=== PATIENT | female | born 1950 | race Caucasian/White ===

== ENCOUNTER 2017-09-12 17:46 | Emergency (ER) | payer MEDICARE ==
[~2017-09-12] VITALS: Ht 167.6 cm; Wt 77.1 kg
[~2017-09-12 17:46] MED LIST: SYNTHROID
--- OUTSIDE RECORDS SUMMARY | 2017-09-12 17:49 | XMS REPORT | Clinical Summary ---
Author Author [facility] Organization [facility] Address Unknown Phone Unavailable Care Team Providers Care Process Manufacturing Engineer Name Role Phone Asked, Given PCP Unavailable Allergies Active Allergy Reactions Severity Noted Date Comments No Known Drug Allergies 12/02/2015 Current Medications Prescription Sig. Disp. Refills Start End Date Status Date levothyroxine (SYNTHROID) Take 1 tablet(s) every Active 100 MCG tablet day by oral route. apixaban (ELIQUIS) 5 mg Take 2.5 mg by mouth 2 Active tablet (two) times a day. spironolactone Take 50 mg by mouth Active (ALDACTONE) 50 MG tablet daily. Active Problems Problem Noted Date Atrial fibrillation 12/02/2015 Malignant neoplasm of breast 12/02/2015 Last Assessment & Plan: RTC 1 year w mamm Mass of breast 09/18/2012 Family History Medical History Relation Name Comments Breast cancer Mother Relation Name Status Comments Mother Social History Tobacco Use Types Packs/Day Years Used Date Never Smoker Alcohol Use Drinks/Week oz/Week Comments No Sex Assigned at Date Recorded Not on file Last Filed Vital Signs Not on file Plan of Treatment Health Maintenance Due Date Last Done Comments COLONOSCOPY 1998 ZOSTER VACCINE 2008 PNEUMOCOCCAL 2013 POLYSACCHARIDE VACCINE AGE 65 AND OVER PNEUMOCOCCAL-13 2013 INFLUENZA VACCINE 02/21/2017 MAMMOGRAM 12/14/2017 12/15/2015, 12/15/2015, 12/17/2013, Additional history exists Results Not on fileafter 09/11/2016 Insurance Payer Benefit Subscriber ID Type Phone Address Plan / Group MEDICARE MEDICARE xxxxxxxxxx Medicare [place], [place] PART A AND B [employer] M[employer] OF xxxxxxxx [employer] [place] Work: [facility] [address] amily YENNY SIMON [id number] Home:
[2017-09-12 18:31] VITALS: BP 140/72
[2017-09-12] MEDS ORDERED: IBUPROFEN 400 MG TAB PO ONE (18:45)
== END 2017-09-12 18:25 | disposition home or self-care (01) ==
LOC: FSED 17:46
DX: S90.31XA Contusion of right foot, initial encounter (principal); W22.8XXA Striking against or struck by other objects, initial encounter; Y93.H2 Activity, gardening and landscaping; Y92.017 Garden or yard in single-family (private) house as the place of occurrence of the external cause; I10 Essential (primary) hypertension; E03.9 Hypothyroidism, unspecified; Z85.3 Personal history of malignant neoplasm of breast; I48.91 Unspecified atrial fibrillation
CPT/HCPCS: 99282

== ENCOUNTER 2018-10-17 06:41 | Emergency (ER) | payer MEDICARE, OTHER ==
[~2018-10-17] VITALS: Ht 167.6 cm; Wt 75.3 kg
--- OUTSIDE RECORDS SUMMARY | 2018-10-17 06:43 | XMS REPORT | Clinical Summary ---
Author Author [facility] Organization [facility] Address Unknown Phone Unavailable Care Team Providers Care Offset Second Press Operator Name Role Phone Asked, None Given PCP Unavailable Allergies Comments Active Allergy Reactions Severity Noted Date No Known Drug Allergies 12/02/2015 Medications End Date Status Medication Sig Dispensed Refills Start Date Active spironolactone Take 50 mg by 0 (ALDACTONE) 50 MG tablet mouth daily. Active aspirin (ECOTRIN) 81 MG Take 81 mg by 0 enteric coated tablet mouth daily. Active levothyroxine (SYNTHROID, Take 100 mcg 0 LEVOXYL) 100 mcg tablet by mouth daily. Active metoprolol succinate XL Take 50 mg by 0 (TOPROL-XL) 50 mg 24 hr mouth daily. tablet Active atorvastatin (LIPITOR) 20 Take 20 mg by 0 MG tablet mouth daily. Default OP ins 08/28/2018 Discontinued levothyroxine (SYNTHROID) Take 1 0 100 MCG tablet tablet(s) every day by oral route. 08/28/2018 Discontinued apixaban (ELIQUIS) 5 mg Take 2.5 mg 0 tablet by mouth 2 (two) times a day. Active Problems Problem Noted Date Atrial fibrillation 12/02/2015 Malignant neoplasm of breast 12/02/2015 Last Assessment & Plan: RTC 1 year w mamm Mass of breast 09/18/2012 Encounters Care Team Description Date Type Specialty Lucille Christianson MD Malignant neoplasm of female breast, unspecified estrogen receptor status, unspecified laterality, unspecified site of breast (HCC) (Primary Dx) 10/12/2018 Transcribe Access Orders Lucille Christianson MD 10/09/2018 Telephone Oncology Zak Richards Jr., MD SUBCUTANEOUS CARDIAC RHYTHM MONITOR REMOVAL [[id number] (CPT)] 08/29/2018 Surgery Procedural Cardiology Zak Richards Jr., MD PAF (paroxysmal atrial fibrillation) ([facility]) 08/29/2018 Hospital Procedural Cardiology Encounter after 10/16/2017 Family History Medical History Relation Name Comments Breast cancer Mother Relation Name Status Comments Mother Social History Date Tobacco Use Types Packs/Day Years Used Never Smoker Smokeless Tobacco: Never Used Alcohol Use Drinks/Week oz/Week Comments Yes occasional Sex Assigned at Date Recorded Not on file Industry Job Start Date Occupation Not on file Not on file Not on file Travel End Travel History Travel Start No recent travel history available. Last Filed Vital Signs Time Taken Vital Sign Reading 08/29/2018 8:45 AM ENVELOPE C[facility]TER Blood Pressure 126/60 08/29/2018 8:45 AM ENVELOPE CUTTER Pulse 48 08/29/2018 8:00 AM ENVELOPE CUTTER Temperature 36.4 C (97.5 F) 08/29/2018 8:45 AM ENVELOPE CUTTER Respiratory Rate 25 08/29/2018 8:45 AM ENVELOPE CUTTER Oxygen Saturation 96% - Inhaled Oxygen - Concentration 08/29/2018 5:34 AM ENVELOPE CUTTER Weight 74.7 kg (164 lb 9.6 oz) 08/29/2018 5:34 AM ENVELOPE CUTTER Height 167.6 cm (5' 6") 08/29/2018 5:34 AM ENVELOPE CUTTER Body Mass Index 26.57 Plan of Treatment Care Team Description Date Type Specialty Lucille Christianson MD [address] [place] [address] 11/27/2018 Appointment Radiology Lucille Christianson MD [address] [place] [address] 11/27/2018 Office Visit Oncology Health Maintenance Due Date Last Done Comments COLON CANCER SCREENING 1998 SHINGLES VACCINES (#1) 1998 65+ PNEUMOCOCCAL VACCINE 2013 (1 of 2 - PCV13) PNEUMOCOCCAL 2013 POLYSACCHARIDE VACCINE AGE 65 AND OVER BREAST CANCER SCREENING 12/14/2017 12/15/2015, 12/15/2015, 12/17/2013, Additional history exists INFLUENZA VACCINE 02/21/2018 Implants Device Identifier Shelf Expiration Date Model / Serial / Lot Implanted Type Area Manufactur er 08/06/2019 LINQSYS / / [id number] System Reveal Linq W/Monitors - Cardiac N/A: N/A [employer] [id number] Pacemakers CARDIAC Implanted: Qty: 1 on 08/29/2018 by and RHYTHM Zak Richards Jr., MD Related DISEASE Products MGMT Procedures Comments Procedure Name Priority Date/Time Associated Diagnosis EP SUBCUTANEOUS CARDAIC Routine 08/29/2018 PAF (paroxysmal atrial RHYTHM MONITOR INSERT W 7:46 AM ENVELOPE CUTTER fibrillation) ([facility]) PROG EP SUBCUTANEOUS CARDIAC Routine 08/29/2018 PAF (paroxysmal atrial RHYTHM MONITOR REMOVAL 7:46 AM ENVELOPE CUTTER fibrillation) ([facility]) HC COMPLETE BLD COUNT STAT 08/29/2018 W/AUTO DIFF 6:03 AM ENVELOPE CUTTER POC PANEL Routine 08/29/2018 6:00 AM ENVELOPE CUTTER ESTIMATED GFR Routine 08/29/2018 6:00 AM ENVELOPE CUTTER after 10/16/2017 Results * Cv electrophysiology procedure (08/29/2018 7:46 AM ENVELOPE CUTTER) Narrative Performed At [facility] Zak Richards Jr., MD Physician Electrophysiology Brief Op Note Signed Date of Service:08/29/2018 7:15 AM Procedure: SUBCUTANEOUS CARDIAC RHYTHM MONITOR REMOVAL Case Time: 08/29/2018 7:15 AM Surgeon: Zak Richards Jr., MD Signed []Hide copied text []Hover for details LINQ Explant and REImplantOperative Note Meagan Sullivan,[id number] 67 y.o. female 08/29/2018; [facility] WT RECREATION PROGRAM SPECIALIST 04 Procedure(s): SUBCUTANEOUS CARDIAC RHYTHM MONITOR REMOVAL SUBCUTNEOUS CARDIAC RHYTHM MONITOR INSERTION Tolerated procedure well Condition: stable Complications:None; patient tolerated the procedure well. Findings: The old ILR SN RLA [id number] was explanted The new device was put in place after flushing with antibiotic flush The incision was closed with a single suture and skin glue Procedure Details Pre-op Diagnosis: PAF (paroxysmal atrial fibrillation) ([facility]) [I48.0] Post-Op Diagnosis Codes: * PAF (paroxysmal atrial fibrillation) (HCC) [I48.0] Surgeon(s) and Role: * Zak Richards Jr., MD - Primary Anesthesia: Anesthesia type not filed in the log. Blood Products Administered:none Estimated Blood Loss: * No values recorded between 08/29/20187:15 AM and 08/29/20187:46 AM * Sheath/IV: Specimens: * No specimens in log * Grafts/Implants: Implant Name Type Inv. Item Serial No. Internal Sales Lot No. LRB No. Used Action SYSTEM REVEAL LINQ W/MONITORS - [id number] Cardiac Pacemakers and Related Products SYSTEM REVEAL LINQ W/MONITORS [employer] CARDIAC RHYTHM DISEASE MGMT [id number] N/A 1 Implanted Zak Richards Jr., MD Date: 08/29/2018Time: 7:46 AM Performing Organization Address [facility] Phone Number [facility] [address] [place] [address] * CBC with platelet and differential (08/29/2018 6:03 AM ENVELOPE CUTTER) WBC 8.52 4.50 - 11.00 k/uL [facility] RBC 5.15 4.20 - 5.50 m/uL [facility] HGB 15.7 12.0 - 16.0 g/dL [facility] HCT 48.2 (H) 37.0 - 47.0 % [facility] MCV 93.6 82.0 - 100.0 fL [facility] MCH 30.5 27.0 - 34.0 pg [facility] MCHC 32.6 31.0 - 37.0 g/dL [facility] RDW - SD 41.8 37.0 - 55.0 fL [facility] MPV 10.8 8.8 - 13.2 fL [facility] Platelet count 181 150 - 400 k/uL [facility] Nucleated RBC 0.00 /100 WBC [facility] Neutrophils 63.9 39.0 - 69.0 % [facility] Lymphocytes 25.5 25.0 - 45.0 % [facility] Monocytes 5.9 0.0 - 10.0 % [facility] Eosinophils 3.8 0.0 - 5.0 % [facility] Basophils 0.5 0.0 - 1.0 % [facility] Immature granulocytes 0.4Comment: "Immature 0.0 - 1.0 % [facility] granulocytes" (promyelocytes, HOSPITAL myelocytes, metamyelocytes) Specimen Blood Performing Organization Address City/[facility] [place] [address] PATHOLOGY AND GENOMIC MEDICINE [address] * Estimated GFR (08/29/2018 6:00 AM ENVELOPE CUTTER) Estimated GFR 88 mL/min/1.73 m2 [facility] Comment: HOSPITAL CatergoryUnitsInte rpretation G1 >=90 Normal or high G2 60-89Mildly decreased V3b75-90 Mildly to moderately decreased C5e69-28 Moderately to severely decreased G4 15-29Severely decreased G5 <15Kidney failure The eGFR was calculated using the Chronic Kidney Disease Epidemiology Collaboration (CKD-EPI) equation. Interpretation is based on recommendations of the National Kidney Foundation-Kidney Disease Outcomes Quality Initiative (NKF-KDOQI) published in 2014. Specimen Blood Performing Organization Address City/[facility]/[place] [address] PATHOLOGY AND GENOMIC MEDICINE [address] * POC panel (08/29/2018 6:00 AM ENVELOPE CUTTER) POC sodium 139 135 - 148 mmol/L [facility] POC potassium 4.4 3.5 - 5.0 mmol/L [facility] POC chloride 101 99 - 109 mmol/L [facility] POC CO2 27 24 - 31 mmol/L [facility] POC glucose 151 (H) 65 - 99 mg/dL [facility] POC BUN 14 8 - 24 mg/dL [facility] POC creatinine 0.7 0.5 - 0.9 mg/dl [facility] POC hematocrit 49 (H) 37 - 47 % [facility] POC anion gap 16 8 - 20 mmol/L [facility] Comment: HOSPITAL Meter ID: [id number] Desktop Engineer: Justice Dee Performing Organization Address City/State/[place] [address] PATHOLOGY AND GENOMIC MEDICINE [address] after 10/16/2017 Insurance Payer Benefit Subscriber ID Type Phone Address Plan / Group COMMERCIAL MISC MISC xxxxxx-xx Commercial COMMERCIAL MEDICARE MEDICARE xxxxxxxxxxx Medicare [place], [place] PART A AND B Advance Directives Patient has advance care planning documents on file. For more information, osmany howell contact: Lemuel Hernandez [address] [place] [address]
--- NOTE | 2018-10-17 07:35 | NUR ---
DR. GUERRA IN WITH PT AT THIS TIME.
--- NOTE | 2018-10-17 07:50 | Diagnostic Imaging Report ---
Exam: Right ankle, 3 views History: Trauma Comparison: None. Findings: No acute, displaced fracture or dislocation. Ankle mortise is maintained. Tibial plafond and talar dome are intact. Mild soft tissue swelling about the ankle. Impression: Soft tissue swelling about the right ankle without underlying acute osseous abnormality. Signed by: Dr. Aurelio Hebert M.D. on 10/17/2018 7:47 AM
[2018-10-17 08:12] VITALS: BP 121/66
== END 2018-10-17 08:09 | disposition home or self-care (01) ==
LOC: ER 06:41
DX: S93.431A Sprain of tibiofibular ligament of right ankle, initial encounter (principal); S93.421A Sprain of deltoid ligament of right ankle, initial encounter; W18.49XA Other slipping, tripping and stumbling without falling, initial encounter; Y93.01 Activity, walking, marching and hiking; Y92.410 Unspecified street and highway as the place of occurrence of the external cause
CPT/HCPCS: 99283

== ENCOUNTER 2019-06-13 14:12 | Observation (INO) | payer MEDICARE, OTHER ==
[~2019-06-13] VITALS: Ht 167.6 cm; Wt 74.4 kg
--- OUTSIDE RECORDS SUMMARY | 2019-06-13 14:14 | XMS REPORT ---
Author [facility] Address Unknown Phone Unavailable Care Team Providers Care Tobacco Packing Machine Operator Name Role Phone Taco GUERRA Unavailable Unavailable Problems This patient has no known problems. Allergies, Adverse Reactions, Alerts This patient has no known allergies or adverse reactions. Medications This patient has no known medications. Results Test Description Test Time Test Comments Text Results Atomic Results Result Comments ANKLE 3 + VIEWS RIGHT 2018-10-17 07:39:00 [place] [address] Patient Name: ANUPAMA SINGH MR #: [id number] : 1950 Age/Sex: 67/F Req #: [id number] Adm Physician: Ordered by: TIMO GARZA MD Report #: [id number] Location: ER Room/Bed: Procedure: [id number] DX/ANKLE 3 + VIEWS RIGHT Exam Date: Exam Time: REPORT STATUS: Signed Exam: Right ankle, 3 views History: Trauma Comparison: None. Findings: No acute, displaced fracture or dislocation. Ankle mortise is maintained. Tibial plafond and talar dome are intact. Mild soft tissue swelling about the ankle. Impression: Soft tissue swelling about the right ankle without underlying acute osseous abnormality. Signed by: Dr. Justina Meyer M.D. on 10/17/2018 7:47 AM Dictated By: JUSTINA MEYER MD 6 Transcribed By: ÓSCAR on 10/17/18746 COPY TO: TIMO GARZA MD
[2019-06-13] MEDS ORDERED: ASPIRIN 325 MG TAB PO ONE (14:15)
[2019-06-13] MEDS ORDERED: ENOXAPARIN INJ 80 MG/0.8 ML SYR SC ONE (14:45)
[2019-06-13] MEDS ORDERED: ENOXAPARIN SODIUM INJ 100 MG/ML SYR SC ONE (14:45)
[2019-06-13] MEDS ORDERED: METOPROLOL TARTRATE INJ 1 MG/ML VIAL IV ONE ×2 (14:45→16:30)
--- NOTE | 2019-06-13 14:53 | Diagnostic Imaging Report ---
EXAMINATION: CHEST SINGLE (PORTABLE) INDICATION: Chest pain COMPARISON: None FINDINGS: LINES/TUBES:EKG leads overlie the chest.. Loop recorder device on the left. LUNGS:The lungs are well-inflated. No focal consolidation or pulmonary edema. PLEURA:No pleural effusion or pneumothorax. MEDIASTINUM:The cardiomediastinal silhouette appears normal in size and shape. Atherosclerotic calcifications of the thoracic aorta. BONES/SOFT TISSUES:No acute osseous injury. ABDOMEN:No free air under the diaphragm. IMPRESSION: No focal pneumonia or pulmonary edema. Signed by: Tereso Rueda MD on 06/13/2019 2:50 PM
[2019-06-13 15:03] LABS: EOSINOPHILS % 0.2 % (0.0-6.0); HEMATOCRIT 45.1 % (34.2-44.1); HEMOGLOBIN 15.5 g/dL (12.0-16.0); LYMPHOCYTES % 3.6 % (18.0-39.1); MEAN CORPUSCULAR HGB CONC 34.4 g/dL (31-35); MEAN CORPUSCULAR VOLUME 90.2 fL (81-99); MONOCYTES % 0.7 % (4.4-11.3); NEUTROPHILS % 5.5 % (38.7-80.0); PLATELET COUNT 201 x10e3/uL (140-360); RED CELL DISTRIBUTION WIDTH 11.9 % (11.7-14.4)
[2019-06-13 15:07] LABS: INR 0.89; PARTIAL THROMBOPLASTIN TIME 31.5 seconds (23.8-35.5); PROTHROMBIN TIME 12.5 seconds (11.9-14.5)
[2019-06-13 15:19] LABS: ALANINE AMINOTRANSFERASE 35 IU/L (0-55); ALBUMIN 4.1 g/dL (3.5-5.0); ALBUMIN/GLOBULIN RATIO 1.1 (0.8-2.0); ALKALINE PHOSPHATASE 104 IU/L (40-150); ANION GAP 15.7 mmol/L (8-16); BLOOD UREA NITROGEN 19 mg/dL (7-26); BUN/CREATININE RATIO 23 (6-25); CALCIUM 10.6 mg/dL (8.4-10.2); CARBON DIOXIDE 24 mmol/L (22-29); CHLORIDE 101 mmol/L (98-107); CREATINE KINASE 87 IU/L (29-168); CREATININE, SERUM 0.84 mg/dL (0.57-1.11); EST GLOMERULAR FILTRATION RATE > 60 ML/MIN (60-); GLUCOSE 142 mg/dL (74-118); MAGNESIUM 1.9 MG/DL (1.3-2.1); POTASSIUM 3.7 mmol/L (3.5-5.1); SODIUM 137 mmol/L (136-145)
[2019-06-13] MEDS ORDERED: METOPROLOL SUCC50 MG PO (15:28)
[2019-06-13] MEDS ORDERED: SYNTHROID100 MCG PO (15:28)
[2019-06-13] MEDS ORDERED: ATORVASTATIN CA20 MG PO (15:28)
[2019-06-13] MEDS ORDERED: SPIRONOLACTONE50 MG PO (15:28)
[2019-06-13] MEDS ORDERED: METOPROLOL TARTRATE 25 MG TAB PO ONE (16:30)
[2019-06-13] MEDS ORDERED: DILTIAZEM HCL 5 MG/ML 5 ML VIAL IV STA (17:34)
[2019-06-13] MEDS ORDERED: DIGOXIN INJ 0.25 MG/ML 2 ML AMP IV ONE (17:45)
[2019-06-13] MEDS ORDERED: NITROGLYCERIN 0.4 MG SUBL SL PRN (17:45)
[2019-06-13] MEDS ORDERED: MORPHINE SULFATE 2 MG/ML SYR 1ML IV PRN (17:45)
[2019-06-13] MEDS ORDERED: ONDANSETRON HCL INJ 2MG/ML 2ML 2 MG/ML VIAL IV PRN (17:45)
[2019-06-13] MEDS: METOPROLOL TARTRATE 25 MG TAB PO SCH (18:08)
[2019-06-13] MEDS: FAMOTIDINE 20 MG/2 ML VIAL IV SCH (18:08)
[2019-06-13 21:45] VITALS: BP 104/50
--- NOTE | 2019-06-13 21:45 | NUR ---
patient received to room 212 via stretcher from the emergency room. vss. patient denies chest pain at this time. admit assessment/history obtained. call carey placed within reach. patient instructed to call for assistance when needed.
--- NOTE | 2019-06-13 23:00 | NUR ---
second set of cardiac markers drawn at this time and taken to the lab.
[2019-06-14] VITALS (9 sets, daily range): BP systolic 101–141; BP diastolic 51–67
[2019-06-14 05:54] LABS: BASOPHILS % 0.2 % (0.0-1.0); EOSINOPHILS # (AUTO) 0.1 (0.0-0.4); EOSINOPHILS % 1.1 % (0.0-6.0); HEMATOCRIT 41.2 % (34.2-44.1); HEMOGLOBIN 14.1 g/dL (12.0-16.0); LYMPHOCYTES # (AUTO) 2.3 (1.0-3.2); LYMPHOCYTES % 28.5 % (18.0-39.1); MEAN CORPUSCULAR HEMOGLOBIN 30.9 pg (28-32); MEAN CORPUSCULAR HGB CONC 34.2 g/dL (31-35); MEAN CORPUSCULAR VOLUME 90.2 fL (81-99); MONOCYTES # (AUTO) 0.6 (0.2-0.8); MONOCYTES % 7.2 % (4.4-11.3); NEUTROPHILS # (AUTO) 5.2 (2.1-6.9); NEUTROPHILS % 62.6 % (38.7-80.0); PLATELET COUNT 176 x10e3/uL (140-360); RED BLOOD COUNT 4.57 x10e6/uL (3.6-5.1); RED CELL DISTRIBUTION WIDTH 12.1 % (11.7-14.4)
[2019-06-14] MEDS: FAMOTIDINE 20 MG/2 ML VIAL IV SCH ×2 (06:00→17:40)
[2019-06-14] MEDS: METOPROLOL TARTRATE 25 MG TAB PO SCH ×3 (06:00→17:40)
[2019-06-14 06:20] LABS: ALANINE AMINOTRANSFERASE 28 IU/L (0-55); ALBUMIN 3.4 g/dL (3.5-5.0); ALBUMIN/GLOBULIN RATIO 1.1 (0.8-2.0); ALKALINE PHOSPHATASE 75 IU/L (40-150); ANION GAP 11.9 mmol/L (8-16); BLOOD UREA NITROGEN 18 mg/dL (7-26); BUN/CREATININE RATIO 23 (6-25); CALCIUM 9.8 mg/dL (8.4-10.2); CARBON DIOXIDE 27 mmol/L (22-29); CHLORIDE 103 mmol/L (98-107); CHOL/HDL RATIO 7.8 (3.0-3.6); CHOLESTEROL 196 MD/DL (0-199); EST GLOMERULAR FILTRATION RATE > 60 ML/MIN (60-); GLUCOSE 126 mg/dL (74-118); HDL CHOLESTEROL 25 MG/DL (40-60); LDL CHOLESTEROL 121 MG/DL (60-130); POTASSIUM 3.9 mmol/L (3.5-5.1); SODIUM 138 mmol/L (136-145); TRIGLYCERIDES 249 MG/DL (0-149)
[2019-06-14 06:48] LABS: CREATINE KINASE MB 2.6 ng/mL (0-5.0)
[2019-06-14] MEDS: APIXABAN 5 MG TABLET PO SCH ×3 (10:12→18:24)
--- NOTE | 2019-06-14 10:42 | NUR ---
Telemetry called and said patient has converted back to a fib with heart rate in 120's. Dr. Fitzgerald is here making rounds, orders received to give PO Metoprolol. Bp is 122/67 at this time. will continue to monitor.
--- NOTE | 2019-06-14 12:00 | NUR ---
Changed to observation status. Per nursing report, pt went back into a fib with HR 120s. Pt was given po metoprolol. Dr. Fitzgerald plans to dc this evening, if HR controlled and pt stable.
--- NOTE | 2019-06-14 16:10 | NUR ---
Patient continues to be sinus tachycardia in 120's-130's. Telemetry called and said patient converted to a flutter in 90's and intermittently back into ST. Dr. Fitzgerald was notified, new orders received. Patient cannot be discharged home at this time. Dr. Kamara was also notified. New orders received
--- NOTE | 2019-06-14 17:10 | Consultation ---
DATE OF CONSULTATION: 06/14/2019 Cardiology Consultation REASON FOR CONSULTATION: Atrial fibrillation. HISTORY: A 68-year-old lady, very active physically, who is known to have atrial fibrillation first diagnosed in 2013. At that time, the patient had workup including cardiac catheterization showed normal coronary. She had DC shock. She is maintained on medication. She had ablation in 2014. She was on Eliquis, Toprol, and Aldactone 50 mg a day. The patient subsequently had loop recorder. During that loop recorder, it was noted several times the patient got atrial fibrillation. She has stopped her Eliquis on her account. She is followed by Dr. Duran in the medical center. The patient came yesterday with severe palpitation prolonged with chest tightness, chest pressure. She was in atrial fibrillation with fast ventricular response. She was given medication and Lovenox and she converted to sinus bradycardia. She is doing well. She wants to go home. Her workup showed normal cardiac enzymes. Her TSH is at 0.5. BNP of 234. Her electrolytes were normal. The patient denied having any angina. She is very active. 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 There is no orthopnea, no paroxysmal nocturnal dyspnea. She has arrhythmia history as described above. REVIEW OF SYSTEMS: GENERAL: No fever. No chills. No weight loss. No weight gain. HEENT: No vision problem. No hearing problem. PULMONARY: No cough. No hemoptysis. CARDIAC: As per acute illness. GI: No hematemesis. No melena. No constipation. No diarrhea. : No hematuria. No dysuria. MUSCULOSKELETAL: No aches. No pain. NEUROLOGICAL: No localized deficits. No seizure activity. HEMATOLOGY: No easy bruising or bleeding. ENDOCRINE: The patient is with hypothyroidism. Her dose of Levoxyl is monitored by her physician. SKIN: There are no rashes. SOCIAL HISTORY: She is . She is nonsmoker. She rarely have a drink. She is retired from [employer]. HOME MEDICATIONS: Levoxyl 112 mcg a day, Toprol-XL 50 mg a day, Aldactone 50 mg a day, aspirin 81 mg a day, and vitamin D. ALLERGIES: NONE. PAST MEDICAL HISTORY: 1. Paroxysmal atrial fibrillation status post cardioversion in 2013 and ablation. 2. Loop recorder placement. 3. Left breast lumpectomy for cancer in 2009. 4. Tubal ligation. 5. Tonsillectomy. FAMILY HISTORY: Father of lung cancer at age 78. Mother of old age with congestive heart failure at age 85. Three brothers, she lost a brother due to AIDS and another brother due to metastatic lung cancer. One healthy sister. No children. PHYSICAL EXAMINATION: VITAL SIGNS: Height of 5 feet 6 inches, weight of 164 pounds, blood pressure 120/60, heart rate 50, respiratory rate of 18, afebrile. HEENT: Pupils are equal and reactive. NECK: No elevation of jugular venous pulsation. No bruit. CHEST: Clear to auscultation and percussion. HEART: PMI at 5th intercostal space. Normal first and second heart sounds. ABDOMEN: Soft with good bowel sounds. No organomegaly. No abdominal bruits. EXTREMITIES: No cyanosis. No clubbing. No edema. Good distal pulses. NEUROLOGIC: Awake, alert, oriented. No motor or sensory deficits. SKIN: No rashes. LABORATORY DATA: Sodium of 138, potassium 3.9, BUN of 18, creatinine of 0.8, glucose of 126. White blood cell count of 8.2, hemoglobin of 14.1, hematocrit 41%, and platelet count of 176,000. EKG from the ER showing atrial fibrillation with very fast ventricular response. Repeat EKG showing extreme sinus bradycardia with nonspecific ST changes. Chest x-ray showed no cardiomegaly, no pulmonary edema. TSH is normal at 0.5. Cardiac enzymes are normal. Triglycerides showed 249, cholesterol of 196, HDL of 25, and LDL of 121. IMPRESSION AND PLAN: 1. Atrial fibrillation, paroxysmal, status post ablation. The patient having recurrent atrial fibrillation. She is followed by Dr. Duran in the medical center. We will start Eliquis. We will continue beta mitchell. She will be seeing him on Monday. 2. Hypothyroidism. 3. Worry about coronary artery disease, mainly with her abnormal lipid profile with very low HDL of 25. However, the patient denied having any angina and she had workup including cardiac cath in 2013. She was advised to have further cardiac workup and at least stress test just to be on safe side. All this discussed and explained. The patient expressed her strong wishes to go home because Thanksgiving alliance party is tomorrow, where the family and every one will go to another place. She will be seeing Dr. Duran on Monday. She already have an appointment. MD GENESIS Lambert/LAURA /[id number]
--- NOTE | 2019-06-14 17:15 | History and Physical ---
CHIEF COMPLAINT: Heart palpitations. HISTORY OF PRESENT ILLNESS: A 68-year-old female, who has a history of atrial fibrillation in the past when she follows up with an EP physician, [facility] machine[facility] and [facility]. Reports to the emergency room with complaints of sudden onset of palpitations. The patient was found to be in atrial fibrillation with RVR with a heart rate in the 150s. The patient reports that she has had an ablation in the past, loop recorders . She reports she has had a cardioversions many times before and continues to take medications in relation to her underlying atrial fibrillation. Initially, she reports she was sleeping soundly. She noticed her heart was racing significantly, came into the [facility] the ER noticed her heart rate was still elevated. She also reports that she was very lightheaded and dizzy when this occurred. The patient seen and evaluated at bedside on the medical floor. She is currently doing well with no other complaints. The patient wishes heart rate was much controlled. Cardiology evaluated her. Cardiology recommends continue with same medications at home including or Eliquis. The patient refused to take Eliquis due to cost. During my evaluation, heart rate went up to 120s and her metoprolol was restarted this morning. REVIEW OF SYSTEMS: Pertinent positives: Atypical chest pain, lightheadedness, and dizziness. Pertinent negatives: Denies any nausea, vomiting, diarrhea, dysuria, hematuria, frequency, urgency, abdominal pain, headaches, shortness of breath, cough, congestion, fever, or any other complaints. The rest of 14-point review of systems are reviewed with the patient and are negative. ALLERGIES: NO KNOWN DRUG ALLERGIES. HOME MEDICATIONS: 1. Lipitor 20 mg daily. 2. Levothyroxine 100 mcg daily. 3. Aldactone 50 mg daily. 4. Metoprolol 50 mg daily. PAST MEDICAL HISTORY: Atrial fibrillation with ablations, cardioversions in the past, and hypertension. PAST SURGICAL HISTORY: Cardioversions, ablation to her for atrial fibrillation. FAMILY HISTORY: Hypertension and diabetes. SOCIAL HISTORY: No drugs. No alcohol. Does not smoke. Good social support vital signs temperature is 95.9 95.9, pulse is was 50s earlier and now it is 120 when I evaluated her. Respiratory rate is 18, blood pressure 122/67, and pulse ox 95% on room air. LABORATORY FINDINGS: Show white count is 8.2, hemoglobin 14, hematocrit 41, and platelets of 176. Sodium 138, potassium 3.9, chloride 103, bicarb 27, anion gap of 11, BUN is 18, creatinine is 0.8, glucose 126, calcium 9.8, total bilirubin 0.9, AST 23, ALT 20, and alkaline phosphatase 75. CK is 42, troponins the last 0.095, it is normal. LDL is 121. TSH is 0.498. Microbiology; none. IMAGING STUDIES: Chest x-ray, no focal pneumonia or pulmonary edema. PHYSICAL EXAMINATION: GENERAL: Not in acute distress. Alert and oriented x3. Cooperative on examination. HEENT: Normocephalic, atraumatic. Eyes; pupils are equal, round, and reactive to light bilaterally. Extraocular movements are intact bilaterally. Throat; no evidence of erythema or exudates in the posterior pharynx. Has poor dentition. NECK: Supple. Good range of motion. PULMONARY: Clear to auscultation bilaterally. No wheezing, rales, or rhonchi. No crackles appreciated. CARDIOVASCULAR: Irregularly irregular heart rhythm and rate. It was elevated during my evaluation. ABDOMEN: Soft, nondistended, nontender to palpation. Bowel sounds present. MUSCULOSKELETAL: Strength is 5/5 throughout. No evidence of any muscle deficits on examination. No weakness appreciated. NEUROLOGIC: Cranial nerves II through XII grossly intact. No evidence of any neurological deficits on exam. SKIN: Intact. Warm to touch. Good cap refill. PSYCHIATRIC: Normal affect and mood. EXTREMITIES: No edema. Good range of motion throughout. IMPRESSION: 1. Atrial fibrillation with rapid ventricular response. 2. Hypertension. 3. Hypothyroidism. 4. Hyperlipidemia. PLAN: At this time, Cardiology agreed with the same rate control medications for discharge. She did not take Eliquis in the past due to cost, but Eliquis will be re-initiated. She is ready to go with her 1st dose of Eliquis here. We will monitor her throughout the day and see how her heart rate does. During my evaluation, heart rate did shoot up to 120s. At this time, we will monitor throughout the afternoon talk with Cardiology again to see if she wants to add any more medications. Continue with Eliquis for rate control medications. We will flip her from inpatient to ops and likely discharge sometime later this afternoon if stable. I spoke with the nursing staff, Manjit. We will provide her a prescription for Eliquis as well as Eliquis 30-day free card. If for heart rate is better and she is asymptomatic, she will likely be discharged later today as the patient is the care to be discharged and she was cleared for Cardiology for discharge. MD MARY Orellana/LAURA /[id number]
[2019-06-15 00:11] VITALS: BP 117/73
[2019-06-15 05:48] VITALS: BP 108/63
[2019-06-15] MEDS: FAMOTIDINE 20 MG/2 ML VIAL IV SCH (05:55)
[2019-06-15] MEDS: METOPROLOL TARTRATE 25 MG TAB PO SCH (05:55)
--- NOTE | 2019-06-15 07:15 | NUR ---
pt resp even and unlabored at this time no distress noted pt easiy aroused and able to make needs known ,call light in reach.
[2019-06-15 08:01] VITALS: BP 117/55
[2019-06-15] MEDS: APIXABAN 5 MG TABLET PO SCH (09:13)
[2019-06-15 10:14] VITALS: BP 117/55
[2019-06-15 12:00] VITALS: BP 139/77
--- NOTE | 2019-06-15 15:00 | NUR ---
pt discharged home with family members, pt and family was educated on her medications, pt was asked to follow up with her PCP, pt iv site was removed no swelling no redness to site.
--- NOTE | 2019-06-16 07:18 | Discharge Summary ---
FINAL DISCHARGE DIAGNOSES: 1. Atrial fibrillation with rapid ventricular response, now improved and resolved with improved heart rate. 2. Hypertension. 3. Hypothyroidism. 4. Hyperlipidemia. CONSULTANTS: Cardiology. PHYSICAL EXAMINATION: VITAL SIGNS: Temperature is 98, pulse 86, respiratory rate is 20, blood pressure 113/77, and pulse ox 98% on room air. LABORATORY DATA: Labs show white count 8.0, hemoglobin 14, hematocrit 21, and platelets of 176. Coagulation PT 12, INR 0.89, PTT 31. D-dimer is 0.39, normal. Chemistry; sodium 138, potassium 3.9, chloride 103, bicarb 27, anion gap of 11, BUN is 18, creatinine is 0.8, glucose 126, calcium is 9.8. LFTs within normal range. Troponins were all negative. BNP 233, albumin 3.4, LDL was 121, TSH is 0.498. IMAGING STUDIES: Chest x-ray was found to be negative. No focal pneumonia or pulmonary edema. HOSPITAL COURSE: This is a 68-year-old female with known history of atrial fibrillation, comes in with underlying palpitations, found to have elevated heart rate with atrial fibrillation with RVR. The patient was given medications IV with much improvement in heart rate. Started on oral beta-blockers on 06/14/2019. She was evaluated by Cardiology. The patient was on oral Eliquis at home due to multiple reasons. While here, the patient was started on Eliquis and her metoprolol was increased to twice a day. Her heart rate was better controlled with a heart rate of 86 prior to being discharge to home. She was discharged on metoprolol-XL 50 mg twice daily as well as oral Eliquis as recommended by Cardiology. The patient was given a free card for Eliquis for 30 days as well as a prescription for metoprolol for discharge. On discharge, patient was doing well with no other issues. She was back to normal baseline. The patient was cleared for discharge by Cardiology. On day of discharge, vital signs were stable, labs remained stable. The patient was seen and evaluated, examined thoroughly on the day of discharge. No other complaints. 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 MEDICATIONS: See med reconciliation form. DISPOSITION: Home. CONDITION: Stable. DIET: Heart healthy. In the event of any worsening symptoms, the patient was advised to come back to the ED for further evaluation. Discharge summary took greater than 35 minutes. MD MARY Orellana/LAURA /[id number]
== END 2019-06-15 14:59 | disposition home or self-care (01) ==
LOC: ER 14:12 → ERHOLD 18:07 → INTOOBSV 18:07 → MED/SURG2 21:42
PROVIDERS: ADMIT Internal Medicine; ATTEND Internal Medicine
DX: I48.0 Paroxysmal atrial fibrillation (principal); R07.2 Precordial pain; Z85.3 Personal history of malignant neoplasm of breast; I48.92 Unspecified atrial flutter; I48.20 Chronic atrial fibrillation, unspecified; I10 Essential (primary) hypertension; E03.9 Hypothyroidism, unspecified; E78.5 Hyperlipidemia, unspecified; Z95.811 Presence of heart assist device; Z80.1 Family history of malignant neoplasm of trachea, bronchus and lung; Z82.49 Family history of ischemic heart disease and other diseases of the circulatory system
CPT/HCPCS: 36415 ×2; 71045; 80053 ×2; 80061; 82550 ×2; 82553 ×2; 83735; 83880; 84443; 84484 ×2; 85025 ×2; 85379; 85610; 85730; 93005; 93306; 99284; G0378 ×3; J1160; J1650; J2405

== ENCOUNTER 2019-11-15 07:51 | Emergency (ER) | payer MEDICARE, OTHER ==
[~2019-11-15] VITALS: Ht 167.6 cm; Wt 71.2 kg
[~2019-11-15 07:51] MED LIST changes: +ATORVASTATIN CA20 MG PO; +METOPROLOL SUCC50 MG PO; +SPIRONOLACTONE50 MG PO; +SYNTHROID100 MCG PO
--- NOTE | 2019-11-15 08:09 | NUR ---
spoke with patient about HR, pt stated she does not want a ekg or blood work, states she is upset about her ankle and this is why her HR is 145. informed Dr Cuello and he is in to see patient at this time.
[2019-11-15] MEDS ORDERED: METOPROLOL TARTRATE INJ 1 MG/ML VIAL IV STA (08:26)
[2019-11-15] MEDS ORDERED: METOPROLOL TARTRATE INJ 1 MG/ML VIAL ONE ×3 (08:38→10:27)
[2019-11-15] MEDS ORDERED: METOPROLOL TARTRATE INJ 1 MG/ML VIAL IV ONE ×2 (09:00→10:15)
--- NOTE | 2019-11-15 09:21 | Diagnostic Imaging Report ---
Exam: Right ankle 3 views History: Twisted ankle, pain Comparison: None. Findings: No acute, displaced fracture or dislocation. Tibial plafond and talar dome are intact. The ankle mortise is well-maintained. Mild soft tissue swelling about the ankle. Impression: Mild soft tissue swelling without acute osseous abnormality. Signed by: Dr. Aurelio Hebert M.D. on 11/15/2019 9:17 AM
[2019-11-15] MEDS ORDERED: CEFTRIAXONE SOD 1 GRAM/0.9% SOD CHL 50ML BAG IV STA (09:31)
[2019-11-15] MEDS ORDERED: CEFTRIAXONE SOD 1 GM/NS 50 ML 50 ML IV ONE (09:44)
[2019-11-15] MEDS ORDERED: KETOROLAC TROMETHAMINE 30 MG/ML VIAL IV ONE (09:45)
[2019-11-15] MEDS ORDERED: CEFTRIAXONE SOD 1 GM/NS 50 ML 50 ML IV STA (09:55)
--- NOTE | 2019-11-15 10:00 | NUR ---
pt states she doen not want to be admitted and does not want to have fluid drawn off her right ankle.
[2019-11-15 10:11] LABS: DIGOXIN 0.38 ng/mL (0.8-2.0)
[2019-11-15] MEDS ORDERED: INDOMETHACIN50 MG PO (11:19)
[2019-11-15] MEDS ORDERED: DOXYCYCLINE HY100 MG PO (11:19)
--- NOTE | 2019-11-15 11:30 | NUR ---
pt states she has a follow up with her PCP on monday, pt also verbalized understanding of signs and symptoms to watch for in reguards to HR and signs of infection for foot.
[2019-11-15 12:50] VITALS: BP 115/74
== END 2019-11-15 12:50 | disposition home or self-care (01) ==
LOC: FSED 07:51
DX: L03.115 Cellulitis of right lower limb (principal); I48.20 Chronic atrial fibrillation, unspecified; M00.9 Pyogenic arthritis, unspecified; A69.23 Arthritis due to Lyme disease; X50.1XXA Overexertion from prolonged static or awkward postures, initial encounter; E03.9 Hypothyroidism, unspecified; Z95.5 Presence of coronary angioplasty implant and graft
CPT/HCPCS: 36415; 73610; 80048; 80076; 80162; 82553; 84443; 84484; 84550; 85025; 85610; 87040; 93005; 96374; 96376; 99284; J0696; J1885